=== PATIENT | male | born 1950 | race Caucasian/White ===

== ENCOUNTER → 2021-08-22 | Outpatient (CLI) | payer BC ==
--- NOTE | 2021-08-23 09:08 | EST ---
EXERCISE STRESS AGE: 71 SEX: M HT: 5'11" WT: 265 lbs. PROTOCOL: Martell STAGE: 2 DURATION OF EXERCISE: 4:00 HEART RATE REST: 75 BLOOD PRESSURE REST: 137/91 MAXIMUM HEART RATE ACHIEVED: 155 MAXIMUM BLOOD PRESSURE: 199/69 85% MPHR: 128 100% MPHR: 151 METS: 6.5 INDICATIONS: Chest pain. CLINICAL INFORMATION: Baseline EKG shows sinus rhythm, normal axis, normal intervals. Patient exercised on Martell protocol for a total of 4 minutes, achieving 5 METS, 85% of predicted maximal heart rate, without chest pain. At peak exercise there was 1.[address]-segment depression noted in the inferolateral leads. CONCLUSIONS: 1. Poor exercise tolerance. 2. Abnormal stress test by EKG criteria. MMODL / IJN: [id number] /
== END | disposition home or self-care (01) ==
LOC: RADNMMAIN 10:07
PROVIDERS: ATTEND Family Medicine
DX: R94.31 Abnormal electrocardiogram [ECG] [EKG] (principal)
CPT/HCPCS: 93017

== ENCOUNTER → 2021-10-14 | Outpatient (CLI) | payer BC ==
[2021-10-14 17:04] LABS: ALT 37 U/L (10-49); AST 30 U/L (14-35); African American GFR (CKD) 88.6 (60.0-200.0); Albumin 4.3 g/dL (3.8-4.9); Albumin/Globulin Ratio 1.48 (1.60-3.17); Alkaline Phosphatase 70 U/L (41-126); Blood Urea Nitrogen 13.7 mg/dL (9.0-27.0); Carbon Dioxide 24.4 mmol/L (20.0-27.5); Chloride 106 mmol/L (96-109); Chol/HDL Ratio 6.18 Ratio; Globulin 2.9 g/dL (1.6-3.3); Glucose 102 mg/dL (70-110); LDL Cholesterol,Calculated 119.7 mg/dL (0.0-131.0); Non-African American GFR(CKD) 76.5 (60.0-200.0); Potassium 4.4 mmol/L (3.5-5.5); Sodium 140 mmol/L (135-145); Total Protein 7.2 g/dL (6.2-8.2)
== END | disposition home or self-care (01) ==
LOC: LABWHC1 11:15
PROVIDERS: ATTEND Internal Medicine Interventional Cardiology
DX: E78.2 Mixed hyperlipidemia (principal)
CPT/HCPCS: 36415; 80053; 80061